=== PATIENT | female | born 1980 | race Caucasian/White ===

== ENCOUNTER 2017-02-26 14:29 | Emergency (ER) | payer OTHER ==
--- NOTE | 2017-02-26 15:32 | PHYS DOC ---
General Chief Complaint: ABDOMINAL PAIN Stated Complaint: ABDOMINAL PAIN Time Seen by MD: 15:24 Source: patient Exam Limitations: no limitations Problems: History of Present Illness Initial Comments Patient is a 36-year-old female who comes to the ED complaining of epigastric pain. Patient states that she's had intermittent epigastric "burning" pain after eating for the past 4 days. She denies excessive ibuprofen or alcohol use but admits to greatly increased stressors with the recent to family members. She cannot recall whether certain types of food create worse symptoms than others but does admit that the discomfort is always after eating. She also has experienced metallic taste and burping. She denies unexplained weight loss, blood in her stool, or dark tarry stools. She denies any vomiting or pre- arrival treatment. Pain described as burning, severe at its worst occurring only after by mouth intake and relieved by rest. Timing/Duration: getting worse, changing over time Severity: moderate Modifying Factors: worse with eating Associated Symptoms: other Allergies: Coded Allergies: No Known Drug Allergies (Unverified , 02/26/17) Past Medical History Medical History: other (anxiety) Surgical History: other (partial hysterectomy) Social History Smoker: cigarettes Alcohol: occasionally Drugs: none Review of Systems Constitutional: denies chills, denies diaphoresis, denies fever, denies malaise Respiratory: denies cough, denies shortness of breath Cardiovascular: denies chest pain, denies palpitations Gastrointestinal: see HPI, denies diarrhea, denies vomiting Genitourinary: denies dysuria, denies frequency, denies hematuria Musculoskeletal: denies back pain, denies joint swelling, denies neck pain Psychiatric/Neurological: denies headache, denies numbness, denies paresthesia Physical Exam General Appearance: WD/WN, no apparent distress Ear, Nose, Throat: hearing grossly normal, normal ENT inspection, normal pharynx Neck: non-tender, supple Respiratory: normal breath sounds, no respiratory distress Cardiovascular: normal peripheral pulses, regular rate, rhythm Gastrointestinal: soft (nondistended, epigastric tenderness to palpation without rebound guarding or palpable mass. 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 She is very anxious that her symptoms will return and I confirmed that they will. We discussed prescription and [id number] medications in addition to the diet and lifestyle changes. I discussed the treatment plan as well as pathophysiology of GERD and gastritis at length with the patient and her anxiety is much better. She was advised that cigarette smoking exacerbates her symptoms and it was recommended that she discontinue tobacco use. She expressed agreement and understanding of the treatment plan. Departure Time of Disposition: 16:48 Disposition: 01 HOME, SELF-CARE Diagnosis: GERD gastritis Condition: GOOD Patient Instructions: Diet for Gastroesophageal Reflux Disease, Adult, Easy-to- Read, Gastroesophageal Reflux Disease, Adult, [id number] Additional Instructions: Please review the patient education materials given by nursing staff. No eating within 4 hours of bedtime, discontinue tobacco, avoid alcohol/fatty/ spicy foods. [id number] Pepcid twice daily, [id number] omeprazole once daily for 2 weeks. Follow-up with your doctor in 1 week for recheck. May need GI referral for EGD if symptoms do not improve. Return to ED with new or changing symptoms. AMOS LUCERO DO Feb 26, 2017 15:32
[2017-02-26] MEDS ORDERED: FAMOTIDINE 20 MG/2 ML VIAL ONE (15:43)
[2017-02-26] MEDS ORDERED: ONDANSETRON PF 4 MG/2 ML VIAL. ONE (15:43)
[2017-02-26] MEDS ORDERED: ONDANSETRON ODT 4 MG TAB.RAPDIS PO ONE (15:50)
[2017-02-26] MEDS ORDERED: FAMOTIDINE 20 MG TABLET PO ONE (15:50)
[2017-02-26] MEDS ORDERED: LIDO:MAALOX 1:1 20 ML SINGLE DOSE PO ONE (15:50)
[2017-02-26] MEDS ORDERED: FAMOTIDINE 20 MG/2 ML VIAL IVP ONE (16:00)
[2017-02-26] MEDS ORDERED: ONDANSETRON PF 4 MG/2 ML VIAL. IV ONE (16:00)
[2017-02-26 16:50] VITALS: BP 169/98
== END 2017-02-26 17:00 | disposition home or self-care (01) ==
LOC: ER 14:29
DX: K21.9 Gastro-esophageal reflux disease without esophagitis (principal); K29.70 Gastritis, unspecified, without bleeding; F17.210 Nicotine dependence, cigarettes, uncomplicated
CPT/HCPCS: 96374; 96375; 99284; J2405; S0028